=== PATIENT | female | born 1995 | race African-American/Black ===

== ENCOUNTER 2019-11-29 21:39 | Emergency (ER) | payer OTHER ==
[~2019-11-29] VITALS: Ht 160 cm; Wt 47.6 kg
[2019-11-30] MEDS ORDERED: AIRBORNE EFFER1 EACH PO (00:02)
[2019-11-30] MEDS ORDERED: OSEL75CA PO (00:02)
[2019-11-30] MEDS ORDERED: KETO10TA2 PO (00:02)
[2019-11-30] MEDS ORDERED: MUCINEX DM ER1 EAC1 PO (00:02)
== END 2019-11-30 00:14 | disposition home or self-care (01) ==
LOC: ER 21:39
DX: J11.1 Influenza due to unidentified influenza virus with other respiratory manifestations (principal)